=== PATIENT | female | born 2000 | race Two or more races ===

== ENCOUNTER → 2024-07-23 | Outpatient (CLI) | payer BC, MEDICAID, SELFPAY ==
[2024-07-23 12:27] LABS: Basophils % (Auto) 0 % (0-2.5); Eosinophils # (Auto) 0.1 Thou/mm3 (0.0-0.5); Eosinophils % (Auto) 1 % (0-10); Hematocrit 39.3 % (36.0-46.0); Hemoglobin 12.8 g/dL (12.0-16.0); Immature Granulocytes % (Auto) 0 % (0-0); Immature Granulocytes Auto 0.02 Thou/mm3 (0.00-0.00); Lymphocytes # (Auto) 1.9 Thou/mm3 (1.0-4.8); Lymphocytes % (Auto) 29 % (10-50); Mean Corpuscular HGB Conc 32.6 g/dl (31.0-37.0); Mean Corpuscular Volume 89 fL (80-100); Monocytes # (Auto) 0.5 Thou/mm3 (0.0-0.8); Monocytes % (Auto) 7 % (0-12); Neutrophils % (Auto) 62 % (37-80); Nucleated Red Blood Cell % 0 /100 WBC (0); Platelet Count 213 Thou/mm3 (140-440); RDW Standard Deviation 39.4 fL (36.4-46.3); Red Blood Count 4.41 Miln/mm3 (4.00-5.20); White Blood Count 6.5 Thou/mm3 (3.6-11.0)
[2024-07-23 12:37] LABS: Glucose Estimated Average 103 mg/dL (80-131); Hemoglobin A1C 5.2 % Hgb (4.8-6.0)
[2024-07-23 12:52] LABS: Alanine Aminotransferase 20 U/L (10-49); Albumin, Serum 4.4 gm/dL (3.5-5.0); Albumin/Globulin Ratio 1.6 (1.2-2.2); Alkaline Phosphatase 53 U/L (46-116); Anion Gap 8 (7-16); Aspartate Amino Transferase 20 U/L (0-34); BUN/Creatinine Ratio 17 Ratio (12-20); Bilirubin,Total 0.7 mg/dL (0.3-1.2); Blood Urea Nitrogen 17 mg/dL (9-23); Calcium 9.5 mg/dL (8.3-10.6); Calcium (Corrected) 9.5 mg/dL (8.5-10.1); Cardiac Risk Estimate 2.8 RATIO (3.7-5.6); Chloride 103 mMol/L (98-107); Cholesterol 154 mg/dL (132-200); Free T4 (Free Thyroxine) 1.12 ng/dL (0.89-1.76); Globulin 2.7 gm/dL (2.3-3.5); Glucose 90 mg/dL (74-106); HDL Cholesterol 56 mg/dL (40-60); LDL Cholesterol,Calculated 88 mg/dL (0-130); Osmolality,Calculated 279 (275-295); Potassium 4.2 mMol/L (3.4-5.1); Sodium 139 mMol/L (136-145); Thyroid Stimulating Hormone 2.64 uIU/mL (0.55-4.78); Total Protein 7.1 gm/dL (5.7-8.2); Triglycerides 48 mg/dL (30-150); eGFR > 60 See Note
== END | disposition home or self-care (01) ==
PROVIDERS: PCP Internal Medicine; Referring Provider Internal Medicine; Visit Provider Internal Medicine
DX: Z00.00 Encounter for general adult medical examination without abnormal findings (principal); E55.9 Vitamin D deficiency, unspecified
CPT/HCPCS: 36415; 80053; 80061; 82306; 83036; 84439; 84443; 85025

== ENCOUNTER → 2024-08-23 | Outpatient (CLI) | payer BC, MEDICAID, SELFPAY ==
--- NOTE | 2024-08-23 08:45 | XR_ITS ---
Examination: Pelvic ultrasound, transabdominal, complete Technique: Transabdominal ultrasound of the pelvis performed using grayscale imaging Date and time of exam: August 23, 2024 0839 hours INDICATIONS: Irregular menses 3 years FINDINGS: Uterus 6.8 cm with uterine fundal mass 2.4 x 2.2 x 3.0 cm Endometrial stripe 0.8 cm Minimal fluid in the endometrium Right ovary 4.2 cm arterial flow small follicular cyst Left ovary 3.2 cm arterial flow small follicular cysts IMPRESSION: Uterine fundal mass 2.4 x 2.2 x 3.0 cm, likely fibroid degeneration Recommend 6 month follow-up transvaginal pelvic sonography
== END | disposition home or self-care (01) ==
LOC: CDIM 08:08
PROVIDERS: PCP Internal Medicine; Referring Provider Internal Medicine; Visit Provider Internal Medicine
DX: R19.00 Intra-abdominal and pelvic swelling, mass and lump, unspecified site (principal)
CPT/HCPCS: 76856

== ENCOUNTER → 2024-09-18 | Outpatient (CLI) | payer BC, MEDICAID, SELFPAY ==
[2024-09-18 15:12] LABS: Glucose Estimated Average 100 mg/dL (80-131); Hemoglobin A1C 5.1 % Hgb (4.8-6.0)
[2024-09-18 15:13] LABS: Basophils % (Auto) 0 % (0-2.5); Eosinophils # (Auto) 0.1 Thou/mm3 (0.0-0.5); Eosinophils % (Auto) 1 % (0-10); Hematocrit 44.6 % (36.0-46.0); Hemoglobin 13.6 g/dL (12.0-16.0); Immature Granulocytes % (Auto) 0 % (0-0); Immature Granulocytes Auto 0.01 Thou/mm3 (0.00-0.00); Lymphocytes # (Auto) 2.1 Thou/mm3 (1.0-4.8); Lymphocytes % (Auto) 29 % (10-50); Mean Corpuscular HGB Conc 30.5 g/dl (31.0-37.0); Mean Corpuscular Hemoglobin 29.7 pg (25.0-35.0); Mean Corpuscular Volume 97 fL (80-100); Monocytes # (Auto) 0.4 Thou/mm3 (0.0-0.8); Monocytes % (Auto) 6 % (0-12); Neutrophils # (Auto) 4.6 Thou/mm3 (1.8-7.7); Neutrophils % (Auto) 64 % (37-80); Nucleated Red Blood Cell % 0 /100 WBC (0); Platelet Count 212 Thou/mm3 (140-440); RDW Standard Deviation 46.2 fL (36.4-46.3); Red Blood Count 4.58 Miln/mm3 (4.00-5.20); White Blood Count 7.3 Thou/mm3 (3.6-11.0)
[2024-09-18 15:16] LABS: Alanine Aminotransferase 19 U/L (10-49); Albumin, Serum 4.6 gm/dL (3.5-5.0); Albumin/Globulin Ratio 1.7 (1.2-2.2); Alkaline Phosphatase 53 U/L (46-116); Anion Gap 9 (7-16); Aspartate Amino Transferase 23 U/L (0-34); BUN/Creatinine Ratio 14 Ratio (12-20); Beta HCG,Quantitative < 1 mIU/mL (<5.0); Bilirubin,Total 0.5 mg/dL (0.3-1.2); Blood Urea Nitrogen 13 mg/dL (9-23); Calcium 9.1 mg/dL (8.3-10.6); Calcium (Corrected) 9.1 mg/dL (8.5-10.1); Carbon Dioxide 27.7 mMol/L (20.0-31.0); Chloride 103 mMol/L (98-107); Creatinine (Component) 0.9 mg/dL (0.6-1.3); Follicle Stimulating Hormone 6.75 mIU/mL (See Note); Free T4 (Free Thyroxine) 1.15 ng/dL (0.89-1.76); Globulin 2.7 gm/dL (2.3-3.5); Glucose 122 mg/dL (74-106); Osmolality,Calculated 280 (275-295); Potassium 4.4 mMol/L (3.4-5.1); Sodium 140 mMol/L (136-145); Thyroid Stimulating Hormone 2.02 uIU/mL (0.55-4.78); Total Protein 7.3 gm/dL (5.7-8.2); eGFR > 60 See Note
[2024-10-07 07:02] LABS: DHEA Sulfate* 242 mcg/dL (18-391); Estrogen, Total, Serum* 167 pg/mL; Luteinizing Hormone* 21.9 mIU/mL; Progesterone,LC/MS* <0.1 ng/mL; Prolactin* 8.5 ng/mL; Testosterone, Free,Dialysis 9.6 pg/mL (0.1-6.4); Testosterone, Total, Dialysis 72 ng/dL (2-45)
== END | disposition home or self-care (01) ==
LOC: SLDO 14:04
PROVIDERS: Referring Provider Specialist; Visit Provider Specialist
DX: N93.9 Abnormal uterine and vaginal bleeding, unspecified (principal)
CPT/HCPCS: 36415; 80053; 82627; 82672; 83001; 83002; 83036; 84144; 84146; 84402; 84403; 84439; 84443; 84702; 85025

== ENCOUNTER → 2024-11-15 | Outpatient (CLI) | payer BC, MEDICAID, SELFPAY ==
[2024-11-25 07:54] LABS: Progesterone,LC/MS* 0.6 ng/mL
== END | disposition home or self-care (01) ==
LOC: SLDO 14:54
PROVIDERS: Referring Provider Specialist; Visit Provider Specialist
DX: E28.2 Polycystic ovarian syndrome (principal)
CPT/HCPCS: 36415; 84144

== ENCOUNTER 2024-12-18 21:37 | Emergency (ER) | payer BC, MEDICAID, SELFPAY ==
[2024-12-18 21:38] VITALS: BMI 28.2
[2024-12-18 23:06] VITALS: BP 138/90; PULSE 65; RESP 16; TEMP 36.9; O2SAT 100
--- NOTE | 2024-12-18 23:31 | EDNOTE_ITS ---
ED Female Urogenital RME/HPI General Chief complaint: Abdominal Pain Stated complaint: ABD PAIN Time Seen by Provider: 12/18/24 23:26 Arrival date/time: 12/18/24 21:37 24F with no significant PMH presents to ED with 3 days of lower ab/pelvic pain and pressure with urination. Patient denies diarrhea, dysuria, and vaginal bleeding/discharge. Limitations: no limitations Related Data Allergies Allergy/AdvReac Type Severity Reaction Status Date / Time No Known Allergies Allergy Verified 12/18/24 21:38 Review of Systems Review of Systems Systems Reviewed: All systems reviewed, normal except as documented Constitutional Constitutional: Reports system reviewed and no additional complaints, except as documented, Denies fever(s) and Denies headache(s) ENT Ears, Nose, Mouth, and Throat: Denies disequilibrium and Denies headache(s) Cardiovascular Cardiovascular: Reports system reviewed and no additional complaints, except as documented, Denies chest pain and Denies dyspnea Respiratory Respiratory: Reports system reviewed and no additional complaints, except as documented, Denies cough and Denies dyspnea Gastrointestinal Gastrointestinal: Reports system reviewed and no additional complaints, except as documented, Reports as per HPI, Reports nausea and Reports vomiting Genitourinary Genitourinary: Reports as per HPI and Reports pelvic pain Neurologic Neurologic: Reports system reviewed and no additional complaints, except as documented, Denies confusion, Denies disequilibrium and Denies headache(s) Psychiatric Psychiatric: Denies confusion Past Medical History Social History SMOKING STATUS: Never smoker ED Exam General Limitations: Present no limitations General appearance: Present alert and in no apparent distress Head Head exam: Present atraumatic Eye Eye exam: Present normal appearance, PERRL and EOMI ENT ENT exam: Present normal exam, normal oropharynx and mucous membranes moist Neck Neck exam: Present normal inspection, full ROM and trachea midline Chest Chest inspection: Present normal inspection and symmetric chest wall rise Respiratory Respiratory exam: Present normal lung sounds bilaterally Cardiovascular Cardiovascular exam: Present regular rate, normal rhythm and normal heart sounds Abdominal Exam Abdominal exam: Present soft and normal bowel sounds Abdominal tenderness: Present RLQ, LLQ and mild Extremities Exam Extremities exam: Present normal inspection and full ROM Back Exam Back exam: Present normal inspection and full ROM Neurological Exam Neurological exam: Present alert, oriented X3 and CN II-XII intact Psychiatric Psychiatric exam: Present normal affect and normal mood Skin Skin exam: Present warm, dry, intact and normal color Course Quality Measures none Orders Category Date Time Status US transvaginal Stat Exams 12/19/24 00:00 Taken CBC Stat Lab 12/18/24 23:32 Completed CMP [Comprehensive Metabolic Panel] Stat Lab 12/18/24 23:32 Completed Drug Screen,Urine Stat Lab 12/18/24 23:15 Completed HCG Qualitative,Urine Stat Lab 12/18/24 23:15 Completed Urinalysis, C/S if Indicated Stat Lab 12/18/24 23:15 Completed Vital Signs Vital signs: Vital Signs Temperature 98.5 F 12/18/24 23:06 Pulse Rate 65 12/18/24 23:06 Respiratory Rate 16 12/18/24 23:06 Blood Pressure 138/90 H 12/18/24 23:06 Pulse Oximetry (%) 100 12/18/24 23:06 Oxygen Delivery Method Room Air 12/18/24 23:06 O2 at 100% on RA and WNLs Urogenital - Female MDM Narrative MDM Narrative:: 24F with no significant PMH presents to ED with 3 days of lower ab/pelvic pain and pressure with urination. Patient denies diarrhea, dysuria, and vaginal bleeding/discharge. Physical exam reveals minimal lower ab/pelvic tenderness. Patient is afebrile, calm, and alert. Telerad US reveals complex L ovarian mass. Minimal leukocytosis. UA clean. HCG neg. Counseled can follow-up with OBGYN or return in morning times for MRI. Patient data External records reviewed:: None Clinical information provided by:: patient Social determinants that could affect healthcare access:: none Patient has the following chronic illnesses:: none How is presenting disease/condition affected by chronic disease/condition?: no chronic disease Evaluation data The following diagnostics were reviewed and interpreted by me:: lab results and radiology exam(s) Lab and/or radiology exams considered but not ordered:: ordered Interpretation Summary: above Medications / Prescriptions Medications or Prescriptions considered but not ordered:: not ordered Medication administrations:: n/a Consultations Consultation(s) initiated? (list below): No Diagnosis Urogenital Female Differential Diagnosis: urinary tract infection, bacterial v aginosis, trichomoniasis, cervicitis, ovarian cyst, vaginitis, ruptured ovarian cyst, cyst of Bartholin's gland, cystitis and dysmenorrhea Most likely diagnosis given after review of the tests above:: ovarian cyst Admission Indicated Admission indicated?: not indicated Admission Request Was there a request for admission?: No Disposition Plan Disposition Plan: Discharge Discharge Attestation Discharge Attestation: The patient and all family members were given an opportunity to ask questions and understood the discharge instructions. Discharge instructions specifically effects, indications for sooner follow up or return to the emergency department, and the expected course of current diagnosis. Patient condition: Stable Discharge Plan Plan Patient Disposition: HOME (Self Care) Discharge Disposition comment: Stable Prescriptions/Referrals Referrals: Eligio Trujillo MD [Primary Care Provider] - In 1 week Problem List Clinical Impression: Ovarian cyst Patient/Caregiver Discharge Instructions Education Materials: ED Ovarian Cyst Additional Instructions: Please follow-up with PCP within 24-48 hours and return immediately if symptoms worsen. Can come back during morning time for MRI or have it done outpatient. Print Language: [place] Stand Alone Forms: Patient Portal Info Letter STERLING/SANDRA Supervising Physician STERLING/SANDRA Supervising Physician: Dr. Bingham
[2024-12-18 23:39] LABS: Collection Type, Urine Clean Catch
[2024-12-18 23:46] LABS: Basophils # (Auto) 0.0 Thou/mm3 (0.0-0.2); Basophils % (Auto) 0 % (0-2.5); Eosinophils # (Auto) 0.1 Thou/mm3 (0.0-0.5); Eosinophils % (Auto) 1 % (0-10); Hematocrit 38.3 % (36.0-46.0); Hemoglobin 12.7 g/dL (12.0-16.0); Immature Granulocytes Auto 0.04 Thou/mm3 (0.00-0.00); Lymphocytes # (Auto) 2.8 Thou/mm3 (1.0-4.8); Lymphocytes % (Auto) 22 % (10-50); Mean Corpuscular HGB Conc 33.2 g/dl (31.0-37.0); Mean Corpuscular Hemoglobin 30.1 pg (25.0-35.0); Mean Corpuscular Volume 91 fL (80-100); Monocytes # (Auto) 1.0 Thou/mm3 (0.0-0.8); Monocytes % (Auto) 8 % (0-12); Neutrophils # (Auto) 8.4 Thou/mm3 (1.8-7.7); Neutrophils % (Auto) 68 % (37-80); Nucleated Red Blood Cell # 0.00 Thou/mm3 (0.00-0.00); Nucleated Red Blood Cell % 0 /100 WBC (0); Platelet Count 240 Thou/mm3 (140-440); RDW Standard Deviation 39.4 fL (36.4-46.3); Red Blood Count 4.22 Miln/mm3 (4.00-5.20); White Blood Count 12.3 Thou/mm3 (3.6-11.0)
[2024-12-18 23:47] LABS: Bilirubin,Urine Negative (Negative); Blood,Urine Negative (Negative); Clarity,Urine Clear (Clear/Hazy); Color,Urine Colorless (Lt Yel-Yel); Culture Indicated,Urine Not Indicated; Glucose, Urine Negative (Negative); Ketones,Urine Negative (Negative); Leukocyte Esterase,Urine Negative (Negative); Nitrite,Urine Negative (Negative); PH,Urine 6.5 (5.0-7.0); Protein,Urine Negative (Neg - Trace); RBC,Urine < 1 /hpf (0-3); Specific Gravity,Urine 1.003 (1.001-1.035); Squamous Epithelial Cell,Urine < 1 /hpf (0-5); Urobilinogen,Urine Negative mg/dL (0.0-1.0); WBC,Urine < 1 /hpf (0-5)
[2024-12-18 23:53] LABS: Amphetamine/Methamp Scrn,U Negative (Negative); Barbiturate Screen,Urine Negative (Negative); Benzodiazepines Screen,Urine Negative (Negative); Benzoylecgonine Screen, Ur Negative (Negative); Fentanyl Screen,Urine Negative (Negative); Opiate Screen,Urine Negative (Negative); THC Screen,Urine Negative (Negative)
--- NOTE | 2024-12-19 | XR_ITS ---
Examination: Transvaginal ultrasound of the pelvis, complete Technique: Transvaginal sonographic images pelvis performed using child scale imaging Exam date and time: December 19, 2024 0043 hours INDICATIONS: Pelvic pain beginning 3 days ago FINDINGS: Uterus 6.5 cm fundal uterine mass 2.9 x 2.6 x 2.8 cm Endometrial stripe 1.0 cm Right ovary 3.2 cm arterial flow. Left ovary 4.3 cm arterial flow, complex left ovarian mass 3.1 x 2.1 x 2.6 cm IMPRESSION: Uterine fundal mass 2.9 x 2.6 x 2.8 cm Complex left ovarian mass 3.1 x 2.1 x 2.6 cm, highest on differential list is ovarian tumor, recommend MRI pelvis follow-up pre and postcontrast.
[2024-12-19 00:10] LABS: Alanine Aminotransferase 13 U/L (10-49); Albumin, Serum 4.9 gm/dL (3.5-5.0); Albumin/Globulin Ratio 1.7 (1.2-2.2); Alkaline Phosphatase 53 U/L (46-116); Anion Gap 9 (7-16); Aspartate Amino Transferase 21 U/L (0-34); BUN/Creatinine Ratio 12 Ratio (12-20); Bilirubin,Total 0.5 mg/dL (0.3-1.2); Blood Urea Nitrogen 12 mg/dL (9-23); Calcium 10.2 mg/dL (8.3-10.6); Calcium (Corrected) 10.2 mg/dL (8.5-10.1); Carbon Dioxide 25.7 mMol/L (20.0-31.0); Chloride 105 mMol/L (98-107); Creatinine (Component) 1.0 mg/dL (0.6-1.3); Estimated Creatinine Clearance 93.8 mL/min (>60); Globulin 2.9 gm/dL (2.3-3.5); Glucose 96 mg/dL (74-106); Osmolality,Calculated 279 (275-295); Potassium 4.6 mMol/L (3.4-5.1); Sodium 140 mMol/L (136-145); Total Protein 7.8 gm/dL (5.7-8.2); eGFR > 60 See Note
[2024-12-19 00:27] LABS: HCG Qualitative,Urine Negative
--- NOTE | 2024-12-19 01:54 | PRELIM_ITS ---
Pelvic ultrasound (transvaginal) with Doppler and wave Doppler spectral analysis. December 19, 2024 0043 hours Clinical history: Pain, no bleeding/discharge Technique: Real-time, grayscale, transvaginal pelvic ultrasound was performed using Duplex scanning including arterial inflow, venous outflow, color and spectral Doppler. Comparison: None. Findings: The uterus is normal in size measuring 6.5 x 3.3 x 3.5 cm. The endometrium is unremarkable and measures 1.0 cm. The right ovary measures 3.2 x 2.9 x 2.9 cm, follicles noted. The left ovary measures 4.3 x 3.5 x 4.1 cm, follicles noted. Complex mass in the left ovary measures 3.1 x 2.1 x 2.1 cm. Both ovaries demonstrate color flow and spectral waveforms on Doppler evaluation. There is no adnexal mass. There is no free fluid on the submitted images. Impression: No evidence of ovarian torsion. Complex left ovarian mass, correlation with MRI for further characterization is recommended. Multiple bilateral ovarian follicles, consider PCOS in the differential diagnosis. Report Electronically Signed By: Isrrael Chávez 12/19/2024 1:54:26 AM [EST]
== END 2024-12-19 02:17 | disposition home or self-care (01) ==
PROVIDERS: Physician Assistant; Emergency Provider Emergency Medicine; PCP Internal Medicine
DX: N83.202 Unspecified ovarian cyst, left side (principal)
CPT/HCPCS: 36415; 76830; 80053; 80307; 81001; 81025; 85025; 99283

== ENCOUNTER → 2024-12-18 | Outpatient (CLI) | payer BC, MEDICAID, SELFPAY ==
[2024-12-30 07:05] LABS: Progesterone,LC/MS* 4.3 ng/mL
== END | disposition home or self-care (01) ==
LOC: SLDO 14:34
PROVIDERS: Referring Provider Specialist; Visit Provider Specialist
DX: N93.9 Abnormal uterine and vaginal bleeding, unspecified (principal)
CPT/HCPCS: 36415; 84144

== ENCOUNTER 2024-12-19 11:57 | Emergency (ER) | payer BC, MEDICAID, SELFPAY ==
--- NOTE | 2024-12-19 | XR_ITS ---
Examination: MRI pelvis with intravenous contrast. MRI pelvis without intravenous contrast. Date and time of exam: February 18, 2025 1538 hours INDICATIONS: Pelvic pain 3 days, complex left ovarian mass Technique: Multiple axial, sagittal and coronal sections of the pelvis obtained. Transverse images, TR 6020, TE 107. T1 weighted transverse images, TR 582, TE 9.5. T2-weighted sagittal images, TR 4000, TE 105. T2-weighted sagittal images, TR 4000, TE 5. Coronal images, TR 4210, TE 107. Axial and coronal images are obtained post 15 cc intravenous injection, gadolinium. Findings: Anteverted uterus, 3 cm uterine fundal mass Endometrial stripe is thickened 11 mm Complex partially cystic partially solid left ovarian mass, which shows irregular mural nodular enhancement on the postcontrast images, measuring 3 x 2.5 x 2.8 cm Right ovary demonstrates small follicular cysts IMPRESSION: Complex partially cystic partially solid left ovarian mass 3.0 x 2.5 x 2.8 cm, differential would include ovarian tumor, less likely endometrioma, the appearance should be clinically correlated
[2024-12-19 11:59] VITALS: BMI 28.2
--- NOTE | 2024-12-19 12:22 | PD.EDRME ---
Rapid Medical Screening Exam RME Arrival date/time: 12/19/24 11:57 24-year-old female presents to the emergency department today for complaints of pelvic pain patient had ultrasound here in the emergency department yesterday was instructed return today for MRI Chief Complaint: Abdominal Pain Time Seen by Provider: 12/19/24 12:10
[2024-12-19 12:26] VITALS: BP 121/79; PULSE 60; RESP 16; TEMP 37.1; O2SAT 100
--- NOTE | 2024-12-19 18:10 | EDNOTE_ITS ---
ED Female Urogenital RME/HPI General Chief complaint: Abdominal Pain Stated complaint: RETURNED FOR MRI, SEEN LAST NIGHT FOR ABD PAIN Time Seen by Provider: 12/19/24 12:10 Arrival date/time: 12/19/24 11:57 24-year-old female presents to the emergency department today for complaints of pelvic pain patient had ultrasound here in the emergency department yesterday was instructed return today for MRI Limitations: no limitations RME / HPI RME / HPI Narrative: 12/19/24 11:57 24-year-old female presents to the emergency department today for complaints of pelvic pain patient had ultrasound here in the emergency department yesterday was instructed return today for MRI Related Data Allergies Allergy/AdvReac Type Severity Reaction Status Date / Time No Known Allergies Allergy Verified 12/19/24 11:59 Review of Systems Review of Systems Systems Reviewed: All systems reviewed, normal except as documented Constitutional Constitutional: Reports system reviewed and no additional complaints, except as documented, Denies fever(s) and Denies headache(s) Eyes Eyes: Reports system reviewed and no additional complaints, except as documented and Denies blurry vision ENT Ears, Nose, Mouth, and Throat: Reports system reviewed and no additional complaints, except as documented, Denies headache(s), Denies nasal congestion and Denies nasal discharge Cardiovascular Cardiovascular: Reports system reviewed and no additional complaints, except as documented, Denies chest pain and Denies dyspnea Respiratory Respiratory: Reports system reviewed and no additional complaints, except as documented, Denies chest congestion, Denies cough and Denies dyspnea Gastrointestinal Gastrointestinal: Reports system reviewed and no additional complaints, except as documented and Denies abdominal pain Genitourinary Genitourinary: Reports system reviewed and no additional complaints, except as documented, Denies dysuria, Denies flank pain and Reports pelvic pain Integumentary/Breasts Skin/Breast: Reports system reviewed and no additional complaints, except as documented and Denies rash Neurologic Neurologic: Reports system reviewed and no additional complaints, except as documented, Reports as per HPI and Denies headache(s) Past Medical History Past Medical History RESPIRATORY: Negative Respiratory Disorders Social History SMOKING STATUS: Never smoker ED Exam General Limitations: Present no limitations General appearance: Present alert and in no apparent distress Head Head exam: Present atraumatic and normal inspection Eye Eye exam: Present normal appearance, PERRL and EOMI; Absent conjunctival injection ENT ENT exam: Present normal exam, normal oropharynx and mucous membranes moist Neck Neck exam: Present normal inspection, full ROM and trachea midline Chest Chest inspection: Present normal inspection and symmetric chest wall rise; Absent tenderness Respiratory Respiratory exam: Present normal lung sounds bilaterally; Absent respiratory distress, wheezes, stridor, accessory muscle use or prolonged expiratory phase Cardiovascular Cardiovascular exam: Present regular rate, normal rhythm and normal heart sounds Abdominal Exam Abdominal exam: Present soft and normal bowel sounds; Absent distention, tenderness, guarding, rebound or rigidity Extremities Exam Extremities exam: Present normal inspection and full ROM Back Exam Back exam: Present normal inspection and full ROM Neurological Exam Neurological exam: Present alert, oriented X3 and CN II-XII intact Psychiatric Psychiatric exam: Present normal affect and normal mood Skin Skin exam: Present warm, dry, intact and normal color Course Quality Measures none Orders Category Date Time Status Insert IV NOW Care 12/19/24 12:33 Active MRI Screening NOW Care 12/19/24 12:16 Active MR pelvis wo/w con Stat Exams 12/19/24 Completed Vital Signs Vital signs: Vital Signs Temperature 98.7 F 12/19/24 12:26 Pulse Rate 60 12/19/24 12:26 Respiratory Rate 16 12/19/24 12:26 Blood Pressure 121/79 12/19/24 12:26 Pulse Oximetry (%) 100 12/19/24 12:26 Oxygen Delivery Method Room Air 12/19/24 12:26 O2 saturation 100% on room air within normal limits Urogenital - Female MDM Narrative MDM Narrative:: 24-year-old female presents to the emergency department today for complaints of pelvic pain patient had ultrasound here in the emergency department yesterday was instructed return today for MRI On exam patient quite well-appearing patient does not appear toxic acute distress patient reports no pain On exam patient has soft nontender abdomen On exam patient is no palpable masses I reviewed patient's lab work and imaging from yesterday MRI obtained today MRI reviewed. Consultation: I spoke with Dr. Aubrey bee to see the patient as office Monday morning For emergent concerns patient is instructed to return immediately Patient data External records reviewed:: [facility] previous records Clinical information provided by:: patient Social determinants that could affect healthcare access:: none Patient has the following chronic illnesses:: None How is presenting disease/condition affected by chronic disease/condition?: no chronic disease Evaluation data The following diagnostics were reviewed and interpreted by me:: lab results and radiology exam(s) Lab and/or radiology exams considered but not ordered:: Labs radiology reviewed Interpretation Summary: Reviewed by me Medications / Prescriptions Medications or Prescriptions considered but not ordered:: Given no meds Medication administrations:: No meds Consultations Consultation(s) initiated? (list below): Yes Consultation #1 (Physician, Specialty, Details): Dr. Burgos FIN[employer] Diagnosis Urogenital Female Differential Diagnosis: urinary tract infection, bacterial vaginosis, cyst of Bartholin's gland, cystitis and other (Ovarian dermoid, dermoid tumor) Most likely diagnosis given after review of the tests above:: Ovarian tumor, dermoid tumor Admission Indicated Admission indicated?: not indicated Admission Request Was there a request for admission?: No Disposition Plan Disposition Plan: Discharge Discharge Attestation Discharge Attestation: The patient and all family members were given an opportunity to ask questions and understood the discharge instructions. Discharge instructions specifically effects, indications for sooner follow up or return to the emergency department, and the expected course of current diagnosis. Patient condition: Stable Discharge Plan Plan Patient Disposition: HOME (Self Care) Discharge Disposition comment: Stable Prescriptions/Referrals Referrals: Joseph Burgos MD [Physician] - 12/24/24 9:00 am Problem List Clinical Impression: Mass of ovary Patient/Caregiver Discharge Instructions Additional Instructions: Please follow-up with Dr. Burgos at 9 AM on Monday inform the clinic that you were seen in the ER and he states he will see you as a walk-in Print Language: Kazakh Stand Alone Forms: [employer] Award Info., Work/School Release, Patient Portal Info Letter PA/INSTRUCTION ASSISTANT PRINCIPAL Supervising Physician STERLING/SANDRA Supervising Physician: Dr. shasha GÓMEZ Attestation MD Attestation The patient was seen by the midlevel practitioner. I, the co-signing physician, was present during the entire ER visit. While I did not physically examine the patient, I was available for consultation as needed. I agree with the plan and documentation.
== END 2024-12-19 18:00 | disposition home or self-care (01) ==
PROVIDERS: Emergency Provider Family Medicine
DX: N83.8 Other noninflammatory disorders of ovary, fallopian tube and broad ligament (principal)
CPT/HCPCS: 72197; 99283; A9577

== ENCOUNTER 2024-12-24 09:33 | Outpatient (AMB) | payer MEDICAID, SELFPAY ==
[2024-12-24 09:57] VITALS: BP 124/83; PULSE 66; RESP 17; TEMP 36.5; O2SAT 98; BMI 28.3
--- NOTE | 2024-12-24 09:57 | AMB.GYNCLNOT ---
Vital Signs 12/24/24 09:57 Height 1.68 m Height Method Measured Weight 79.492 kg Weight Measurement Method Standing Scale BMI 28.3 BP 124/83 Blood Pressure Source Automatic Cuff Blood Pressure Location Right Upper Arm Position Sitting Respiration 17 Pulse 66 Pulse Source Monitor Temp 97.7 F Temp Source Temporal Artery Scan Pulse Oximetry (%) 98 Oxygen Delivery Method Room Air Allergies/Home Meds Allergies & Medications Allergies No Known Allergies Allergy (Verified 12/24/24 09:57) Medication Reconciliation clomiphene citrate 50 mg tablet 50 mg PO QDAY 5 days #5 tabs 12/24/24 [Rx] folic acid 0.8 mg capsule 0.8 mg PO QDAY 12/24/24 [History Confirmed 12/24/24] medroxyprogesterone 10 mg tablet 10 mg PO QDAY 14 days #14 tabs 12/24/24 [Rx] multivitamin (One Daily Multivitamin tablet) 1 tab PO QAM 12/24/24 [History Confirmed 12/24/24] Intake Visit Data Collection New Patient or Established: Established Patient (seen at 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 1. Little interest or pleasure in doing things: not at all 2. Feeling down, depressed, or hopeless: not at all Total score: 0 PHQ-9 3. Trouble falling or staying asleep, or sleeping too much: Not at all 4. Feeling tired or having little energy: Not at all 5. Poor appetite or overeating: Not at all 6. Feeling bad about yourself - or that you are a failure or have let yourself or your family down: Not at all 7. Trouble concentrating on things, such as reading the newspaper or watching television: Not at all 8. Moving or speaking so slowly that other people could have noticed? - Or the opposite - being so fidgety or restless that you have been moving around a lot more than usual: not at all 9. Thoughts that you would be better off or of hurting yourself in some way: Not at all Total score: 0 If you checked off any problems, how difficult have these problems made it for you to do your work, take care of things at home, or get along with other people?: not difficult at all Source: Developed by Drs. Brody Saldana, Luzmaria Marcus, Jay Farmer and colleagues, with an educational eugene from [employer]. Social History Living Situation History Marital Status: Single Lives With: Family Housing: House Tobacco History Smoking Status: Never smoker Alcohol History Alcohol Intake: Never Domestic Abuse History Do You Feel Safe at Home: Yes History of Present Illness HPI Narrative Patient is a 24-year-old presenting for follow-up after multiple recent ER visits where a left ovarian mass was discovered. She denies any current complaints. The patient's medical history includes multiple ER visits on consecutive days. On July 23, 2024, a pelvic ultrasound revealed a uterine fundal mass measuring 2.4 x 2.2 x 3 cm. She returned to the ER on December 20, 2023, where another ultrasound showed the uterine fundal mass had grown to 2.9 x 2.6 x 2.8 cm, and a complex left ovarian mass measuring 3.1 x 2.1 x 2.6 cm was identified. She reports having very long menstrual periods, lasting 8 to 11 days. She is not currently on any control or hormones. The patient mentions she has been experiencing fertility issues and is not ovulating. She is not currently trying to conceive but has been in the past. She denies any pain, cramping, very painful periods, nausea, or vomiting associated with her condition. Medical History: - Multiple emergency room visits, including July 23, 2024, and December 19, 2024 - Uterine fundal mass (fibroid) detected on ultrasound - Complex left ovarian mass (dermoid cyst) detected on ultrasound and MRI - Fertility issues - Anovulation - Menorrhagia with periods lasting 8-11 days Obstetric History: - GPAL: A0 L0 - Current : Not currently - history: No prior pregnancies mentioned Social History: - Family Planning: Patient was previously trying to conceive, but not currently - Menstrual History: Reports long periods lasting 8 to 11 days - Fertility: Patient reports having fertility issues and is not ovulating - Pelvic ultrasound (07/23/2024): Uterine fundal mass 2.4 x 2.2 x 3 cm - Pelvic ultrasound (12/20/2023): Uterine fundal mass 2.9 x 2.6 x 2.8 cm, complex left ovarian mass 3.1 x 2.1 x 2.6 cm - MRI: Anteverted uterus, fundal mass 3 cm, endometrial stripe 11 mm, complex, partially cystic, partially solid left ovarian mass with irregular mural nodular enhancement 3 x 2.5 x 2.8 cm, right ovary small follicular cysts Exam General General Appearance: alert, in no apparent distress and healthy appearing Head Head exam: atraumatic Neck Neck exam: Present normal inspection and trachea midline Chest Chest inspection: Present normal inspection and symmetric chest wall rise External exam: Present normal external exam; Absent tenderness Neuro Neurological exam: Present oriented X3 Psych Psychiatric exam: Present normal affect and normal mood Office Procedures OB Clinic LOC & Office Proc's Nursing/Assessment Patient Status: Established Patient OB Clinic Nursing Assessment: Medication Reconciliation, Update PMH in EMR and Vital Signs OB Clinic Coordination of Care: Complex Care and Chronic Disease 1-5, Consent,records obtained, informed consent, Education Simp Pt/Fam, 4+ Authorizations needed, Lab and Imaging orders and Results/Orders obtained Established Patient Charge Established Patient Point Assignment: 120 Established Patient Point Charge: EP Level 4 (120-155) Assessment & Plan Diagnosis / Problem List (1) Ovarian cyst: Status: Acute (2) Abnormal uterine and vaginal bleeding, unspecified: Status: Acute Plan Left ovarian complex mass (dermoid cyst) Assessment: Patient had multiple ER visits with imaging studies. Most recent MRI on December 19, 2024, revealed a complex, partially cystic, partially solid left ovarian mass with irregular mural nodular enhancement measuring 3 x 2.5 x 2.8 cm. This mass is consistent with a dermoid cyst, which contains different cell types that can form body parts. The size is not considered large, as masses 5 cm or larger are typically of greater concern. Patient denies pain, cramping, very painful periods, nausea, or vomiting. The dermoid cyst is not likely interfering with fertility at its current size. Plan: - Repeat imaging (ultrasound) in 6 months to reassess size and characteristics of the dermoid cyst - Patient instructed to report if experiencing pain, cramping, very painful periods, nausea, or vomiting - Surgical intervention not indicated at this time due to small size and absence of symptoms - Reassured patient that the cyst does not affect fertility or make risky Uterine fundal mass (fibroid) Assessment: MRI on December 19, 2024, showed a 3 cm fundal mass in the uterus, consistent with a fibroid. This finding was also noted on previous ultrasounds, with measurements of 2.4 x 2.2 x 3 cm on July 23, 2024, and 2.9 x 2.6 x 2.8 cm on December 19, 2024. The fibroid appears to be slowly growing but remains small. Plan: - Monitor fibroid growth with repeat imaging (ultrasound) in 6 months - No specific intervention required at this time due to small size and absence of reported symptoms Menstrual irregularities and fertility concerns Assessment: Patient reports long menstrual periods lasting 8 to 11 days. She also mentions fertility issues and confirms she is not ovulating. These symptoms may be related to hormonal imbalances or ovulatory dysfunction. Plan: - Initiate ovulation induction therapy - Start on day 1 of next menstrual cycle, count 10 days, then take for 2 weeks - Start on day 5 of the following menstrual cycle - Continue this regimen for 2 months - Instruct patient to monitor for ovulation and attempt conception during ovulation periods - Follow-up appointment in 2 months to assess response to treatment - Counseled patient on potential to conceive in the next 1-2 months
== END 2024-12-24 10:36 | disposition home or self-care (01) ==
LOC: HODSOBC 09:33
PROVIDERS: Supervising Provider Obstetrics & Gynecology; Visit Provider Obstetrics & Gynecology
DX: D27.1 Benign neoplasm of left ovary (principal); N93.9 Abnormal uterine and vaginal bleeding, unspecified; D25.9 Leiomyoma of uterus, unspecified; N97.0 Female infertility associated with anovulation
CPT/HCPCS: 99214; G0463

== ENCOUNTER → 2025-05-06 | Outpatient (CLI) | payer BC, SELFPAY ==
[2025-05-14 06:40] LABS: DHEA Sulfate* 202 mcg/dL (18-391); Progesterone,LC/MS* 13.7 ng/mL; Prolactin* 12.3 ng/mL; Testosterone, Free,Dialysis 6.2 pg/mL (0.1-6.4); Testosterone, Total, Dialysis 45 ng/dL (2-45)
== END | disposition home or self-care (01) ==
PROVIDERS: PCP Internal Medicine; Referring Provider Specialist; Visit Provider Specialist
DX: E28.2 Polycystic ovarian syndrome (principal)
CPT/HCPCS: 36415; 82627; 84144; 84146; 84402; 84403